=== PATIENT | female | born 2000 | race Two or more races ===

== ENCOUNTER 2023-08-06 12:58 | Emergency (ER) | payer MEDICAID, OTHER ==
[~2023-08-06] VITALS: Ht 154.9 cm; Wt 86.1 kg
[2023-08-06 13:57] VITALS: BP 122/83; PULSE 71; RESP 18; TEMP 98.5; O2SAT 96
[2023-08-06] MEDS ORDERED: IBUP-1456 PO (14:06)
[2023-08-06] MEDS ORDERED: CLIN1CAP70 PO (14:06)
[2023-08-06] MEDS ORDERED: HYDR50TA69 PO (14:14)
== END 2023-08-06 14:12 | disposition home or self-care (01) ==
LOC: ER 12:58
DX: K04.7 Periapical abscess without sinus (principal); F41.9 Anxiety disorder, unspecified; Z79.899 Other long term (current) drug therapy